=== PATIENT | female | born 1965 | race Two or more races ===

== ENCOUNTER 2016-10-16 10:56 | Inpatient (IN) | payer OTHER ==
[2016-10-16] MEDS ORDERED: Sodium Chloride 0.9% 1,000 ML IV ONE ×2 (12:04→16:53)
[2016-10-16 13:00] LABS: HEMATOCRIT 35.8 % (34.0-47.0); MEAN CELL VOLUME 89.9 fL (81.0-99.0); MEAN CORPUSCULAR HEMOGLOBIN 29.5 pg (27.0-31.0); MEAN CORPUSCULAR HGB CONC 32.8 g/dL (33.0-37.0); MEAN PLATELET VOLUME 8.9 fL (7.2-11.7); PLATELET COUNT 208 K/uL (130-400); RED CELL DISTRIBUTION WIDTH 13.5 % (11.5-14.5)
[2016-10-16 13:02] LABS: WHITE BLOOD COUNT 9.5 K/uL (4.8-10.8)
[2016-10-16 13:07] LABS: RBC URINE 7 /hpf (0-3); URINE BILIRUBIN NEGATIVE (NEGATIVE); URINE BLOOD 1+ (NEGATIVE); URINE COLOR Yellow (YELLOW); URINE GLUCOSE (UA) NORMAL (Normal); URINE KETONE NEGATIVE (NEGATIVE); URINE LEUKOCYTE ESTERASE TRACE Leu/uL (Negative); URINE PROTEIN NEGATIVE (NEGATIVE); URINE UROBILINOGEN NORMAL mg/dL (0.2-1.0); WBC URINE 3 /hpf (0-5)
[2016-10-16 13:08] LABS: CHLORIDE 99 mmol/L (98-107)
[2016-10-16 13:09] LABS: POTASSIUM 3.3 mmol/L (3.6-5.2); SODIUM 135 mmol/L (132-148)
[2016-10-16 13:11] LABS: ALB/GLOB RATIO 1.1 (1.0-2.1); ALKALINE PHOSPHATASE 83 U/L (38-126); ALT/SGPT 20 U/L (9-52); AST/SGOT 23 U/L (14-36); BILIRUBIN,TOTAL 0.9 mg/dL (0.2-1.3); BLOOD UREA NITROGEN 12 mg/dL (7-17); CARBON DIOXIDE 25 mmol/L (22-30); GFR AFRICAN-AMERICAN > 60; TOTAL PROTEIN 7.7 g/dL (6.3-8.3)
[2016-10-16 13:12] LABS: CALCIUM 8.5 mg/dl (8.6-10.4); GLUCOSE,RANDOM 126 mg/dL (65-105)
[2016-10-16 13:19] LABS: LYMPH # 0.5 K/uL (1.0-4.3); MONO # 0.1 K/uL (0.0-0.8)
[2016-10-16 13:24] LABS: NEUTROPHIL 65 % (50-75); TOTAL CELLS COUNTED 100
[2016-10-16] MEDS ORDERED: Vancomycin 1 gm/NS 200 ml 1 GM/200 ML BAG IVPB STA (13:25)
[2016-10-16] MEDS ORDERED: cefTRIAXone IV 1 gm in Dextros 50 ML IVPB STA (13:25)
--- NOTE | 2016-10-16 13:28 | C.PDOC ---
History Of Present Illness A 51 y/o female who came from [facility] 5 years ago, c/o colicky abdominal pain that began last with multiple episodes of diarrhea. Patient states she was well yesterday before the onset of symptoms. Patient woke up this morning with headache and neck stiffness. Pain is 6/10. Patient was afebrile (orally) on arrival. Denies nausea, vomiting, SOB, visual changes, weakness, numbness, or any other complaints. Time Seen by Provider: 10/16/16 11:52 Chief Complaint (Nursing): Headache History Per: Patient History/Exam Limitations: no limitations Onset/Duration Of Symptoms: Days Current Symptoms Are (Timing): Still Present Severity: Mild Pain Scale Rating Of: 6 Quality: Other (Colicky) Associated Symptoms: Nausea, Vomiting. denies: Blurred Vision Recent travel outside of the [facility]: No Additional History Per: Patient Past Medical History Reviewed: Historical Data, Nursing Documentation, Vital Signs Vital Signs: Last Vital Signs Temp 98.3 F 10/16/16 15:04 Pulse 69 10/16/16 16:30 Resp 20 10/16/16 16:30 BP 76/41 L 10/16/16 16:24 Pulse Ox 99 10/16/16 17:05 - Medical History PMH: Denies: Diabetes, Hepatitis, HIV, HTN, Seizures, Sexually Transmitted Disease Surgical History: Cholecystectomy Family History: States: Unknown Family Hx - Social History Hx Tobacco Use: No Hx Alcohol Use: No Hx Substance Use: No - Immunization History Hx Tetanus Toxoid Vaccination: Yes Hx Influenza Vaccination: No Hx Pneumococcal Vaccination: No Review Of Systems Except As Marked, All Systems Reviewed And Found Negative. Constitutional: Negative for: Fever, Chills Eyes: Negative for: Vision Change Respiratory: Negative for: Shortness of Breath Gastrointestinal: Positive for: Abdominal Pain, Diarrhea. Negative for: Nausea , Vomiting Musculoskeletal: Positive for: Neck Pain (Neck stiffness) Neurological: Positive for: Headache. Negative for: Weakness, Numbness Physical Exam - Physical Exam Appears: No Acute Distress Skin: Warm, Dry Head: Atraumatic, Normacephalic Eye(s): bilateral: Normal Inspection, PERRL, EOMI Ear(s): Bilateral: Normal Oral Mucosa: Moist Throat: Normal, No Exudate Neck: Supple, Other (No meningeal signs) Cardiovascular: Rhythm Regular Respiratory: Normal Breath Sounds, No Accessory Muscle Use, No Rales, No Rhonchi , No Wheezing Gastrointestinal/Abdominal: Soft, No Tenderness Neurological/Psych: Oriented x3 (Awake and alert) ED Course And Treatment - Laboratory Results Result Diagrams: 10/16/16 12:35 10/16/16 12:35 O2 Sat by Pulse Oximetry: 99 (RA) Pulse Ox Interpretation: Normal Lumbar Puncture - Time Out Time Out: Patient ID confirmed, Sterile procedures obs. - Consent obtained Consent obtained: Written - Performed by Performed by: Attending Physician - Indications Indication(s): Suspected menigitis - Contraindications Contraindications: None - Patient Position Patient position: Sitting - Local Anesthetic Location: L4/L5 Needle size gauge: 22 - Fluid Appearance Fluid Appearance: Clear Amount Drained ml: 4 - Post-procedure Post-procedure: No leak/bld from LP site, Dressing applied, Patient laid flat, Neurovascular status nml - CSF Studies CSF Studies: Cell count/diff, Glucose, culture/sensitivity - Patient tolerated procedure Patient tolerated procedure: Well Medical Decision Making Medical Decision Making: Impression: A 51 y/o female who came from [facility] 5 years ago, c/o colicky abdominal pain that began last with multiple episodes of diarrhea. Associated headache and neck stiffness. Rectal temp 103. Plan IV Abx, LP, admission Rectal temp ordered, pt temp 103F (+) bandemia Code sepsis called LP performed Blood and urine culture ordered Vancomycin and Rocephin started Pt became hypotensive with BP at 60s/40s Spoke with ICU, Dr. Mckinley at beside and accepted the pt Endorsed to hospitalist Disposition Discussed With DrNikkie: Titus Hernandez Counseled Patient/Family Regarding: Studies Performed, Diagnosis - Disposition Disposition: HOSPITALIZED Disposition Time: 14:53 Condition: GUARDED - Clinical Impression Clinical Impression: Headache, Sepsis, Hypotension - Scribe Statement The provider has reviewed the documentation as recorded by the Scribe Kyara hogue All medical record entries made by the Scribe were at my direction and personally dictated by me. I have reviewed the chart and agree that the record accurately reflects my personal performance of the history, physical exam, medical decision making, and the department course for this patient. I have also personally directed, reviewed, and agree with the discharge instructions and disposition. Decision To Admit - Pt Status Changed To: Hospital Disposition Of: Inpatient - Admit Certification Admit to Inpatient:: After my assessment, the patient will require hospitalization for at least two midnights. This is because of the severity of symptoms shown, intensity of services needed, and/or the medical risk in this patient being treated as an outpatient. - InPatient: Physician Admission Certification: I certify that this patient requires 2 or more midnights of care for the following reason:: hypotension, sepsis, r/o meningitis - . Bed Request Type: ICU Admitting Physician: Titus Hernandez Patient Diagnosis: Headache, Sepsis, Hypotension
[2016-10-16] MEDS ORDERED: Sodium Chloride 0.9% 1,000 ML ONE (13:44)
--- NOTE | 2016-10-16 13:56 | RAD ---
HISTORY: Sepsis Patient COMPARISON: No prior. FINDINGS: LUNGS: The lungs are well inflated and clear. PLEURA: No significant pleural effusion identified, no pneumothorax apparent. CARDIOVASCULAR: Normal. OSSEOUS STRUCTURES: No significant abnormalities. VISUALIZED UPPER ABDOMEN: Normal. OTHER FINDINGS: None. IMPRESSION: No active pulmonary disease.
[2016-10-16] MEDS ORDERED: cefTRIAXone IV 1 gm in Dextros 50 ML IVPB ONE (14:11)
[2016-10-16 14:15] LABS: VENOUS BLOOD GAS BASE EXCESS 0.1 mmol/L (0.0-2.0); VENOUS BLOOD GAS PCO2 35 mmHg (40-60); VENOUS BLOOD PH 7.44 (7.32-7.43)
[2016-10-16 14:37] LABS: FLUID TYPE SPINAL FLUID
--- NOTE | 2016-10-16 14:46 | CP.PCM.HP ---
<Remedios Colon - Last Filed: 10/16/16 18:58> History of Present Illness - History of Present Illness History of Present Illness: Patient is a 51yo F PMHx hypotension does not take any medications who presented to ER complaining of fever, chills, headache, neck pain, diarrhea, and vomiting for one day. Patient was afebrile in ER but had rectal temp 103 with bandemia and BP of 70/40 with HR 62. Code sepsis was called in ER and LP was performed by Dr. Villalta. Blood and urine cultures ordered and patient was given 1 dose vancomycin and started on Rocephin. Patient was given 3L bolus but BP was still 60s/40s and was accepted to unit. Patient reports headache was 8-9/10 and locaed on the top of her head with no associated blurry vision/ringing of the ears. Patient was also complaining of colicky abdominal pain 8-9/10 and had 6 episodes of diarrhea and home that had no bood but was dark colored. Patient also had 3 episodes of nonbloody nonbilious emesis this AM. Her last meal was yesterday and she denied any sick contacts. Patient did not take a temp at home but was complaining of chills. She denied any chest pain, palpitations, SOB, cough, b/l leg pain/swelling. She denied any recent travel and moved from [facility] 5 years ago. 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 absent: Blurred Vision Ears: As Per HPI. absent: Tinnitus, Dizziness Nose/Mouth/Throat: As Per HPI. absent: Sore Throat - Cardiovascular Cardiovascular: As Per HPI. absent: Chest Pain, Chest Pain with Activity, Dyspnea - Respiratory Respiratory: As Per HPI. absent: Cough, Dyspnea on Exertion, Chest Congestion - Gastrointestinal Gastrointestinal: As Per HPI, Abdominal Pain, Diarrhea, Nausea, Vomiting. absent: Constipation - Genitourinary Genitourinary: As Per HPI. absent: Dysuria, Hematuria - Musculoskeletal Musculoskeletal: As Per HPI. absent: Back Pain, Numbness, Tingling - Integumentary Integumentary: As Per HPI. absent: Rash - Neurological Neurological: As Per HPI, Headaches. absent: Dizziness, Numbness, Tingling, Weakness - Psychiatric Psychiatric: As Per HPI. absent: Anxiety - Endocrine Endocrine: As Per HPI. absent: Polydipsia, Polyphagia, Polyuria - Hematologic/Lymphatic Hematologic: As Per HPI. absent: Easy Bleeding, Easy Bruising, Lymphadenopathy Past Patient History - Past Social History Smoking Status: Never Smoked - CARDIAC Hx Hypertension: No - PULMONARY Hx Tuberculosis: No - NEUROLOGICAL Hx Seizures: No - HEMATOLOGICAL/ONCOLOGICAL Hx Human Immunodeficiency Virus (HIV): No - GENITOURINARY/GYNECOLOGICAL Hx Sexually Transmitted Disorders: No - PSYCHIATRIC Hx Substance Use: No - SURGICAL HISTORY Hx Cholecystectomy: Yes - ANESTHESIA Hx Anesthesia: Yes Hx Anesthesia Reactions: No Meds Allergies/Adverse Reactions: Allergies Allergy/AdvReac Type Severity Reaction Status Date / Time pain medication AdvReac Intermediate Uncoded 11/25/15 12:17 Physical Exam - Constitutional Appears: Well, Non-toxic, No Acute Distress - Head Exam Head Exam: ATRAUMATIC, NORMAL INSPECTION, NORMOCEPHALIC - Eye Exam Eye Exam: EOMI, Normal appearance, PERRL. absent: Conjunctival injection, Scleral icterus Pupil Exam: NORMAL ACCOMODATION - ENT Exam ENT Exam: Mucous Membranes Moist - Neck Exam Neck exam: Positive for: Normal Inspection Additional comments: R IJ triple lumen in place - Respiratory Exam Respiratory Exam: Clear to Auscultation Bilateral, NORMAL BREATHING PATTERN. absent: Accessory Muscle Use, Rales, Rhonchi, Wheezes, Respiratory Distress - Cardiovascular Exam Cardiovascular Exam: REGULAR RHYTHM, RRR, +S1, +S2. absent: Systolic Murmur - GI/Abdominal Exam GI & Abdominal Exam: Normal Bowel Sounds, Soft. absent: Firm, Guarding, Rigid, Tenderness - Rectal Exam Rectal Exam: Deferred - Extremities Exam Extremities exam: Positive for: normal capillary refill, normal inspection, pedal pulses present. Negative for: pedal edema - Back Exam Back exam: NORMAL INSPECTION. absent: rash noted - Neurological Exam Neurological exam: Alert, CN II-XII Intact, Oriented x3 - Psychiatric Exam Psychiatric exam: Normal Affect, Normal Mood - Skin Skin Exam: Dry, Intact, Normal Color, Warm Results - Vital Signs Recent Vital Signs: Last Vital Signs Temp 102.2 F H 10/16/16 13:20 Pulse 62 10/16/16 14:29 Resp 18 10/16/16 14:29 BP 70/40 L 10/16/16 14:29 Pulse Ox 98 10/16/16 14:29 - Labs Result Diagrams: 10/16/16 12:35 10/16/16 12:35 Labs: Laboratory Results - last 24 hr 10/16/16 10/16/16 10/16/16 12:35 12:35 12:35 WBC 9.5 D RBC 3.99 Hgb 11.8 Hct 35.8 MCV 89.9 MCH 29.5 MCHC 32.8 L RDW 13.5 Plt Count 208 MPV 8.9 Neut % (Auto) 94.0 H Lymph % (Auto) 5.0 L [place] % (Auto) 1.0 Eos % (Auto) 0.0 Baso % (Auto) 0.0 Neut # 8.9 H Lymph # 0.5 L [place] # 0.1 Eos # 0.0 Baso # 0.0 Neutrophils % (Manual) 65 Band Neutrophils % 30 H* Lymphocytes % (Manual) 4 L Monocytes % (Manual) 1 Platelet Estimate Normal Hypochromasia (manual) Slight Poikilocytosis (manual Slight Anisocytosis (manual) Slight pO2 VBG pH VBG pCO2 VBG HCO3 VBG Total CO2 VBG O2 Sat (Calc) VBG Base Excess VBG Potassium Glucose Lactate Sodium 135 Potassium 3.3 L Chloride 99 Carbon Dioxide 25 Anion Gap 15 BUN 12 Creatinine 0.7 Est GFR ( Amer) > 60 Est GFR (Non-Af Amer) > 60 Random Glucose 126 H Calcium 8.5 L Total Bilirubin 0.9 AST 23 ALT 20 Alkaline Phosphatase 83 Total Protein 7.7 Albumin 4.1 Globulin 3.6 Albumin/Globulin Ratio 1.1 Venous Blood Potassium Urine Color Yellow Urine Clarity Hazy Urine pH 5.0 Ur Specific [place] 1.023 Urine Protein Negative Urine Glucose (UA) Normal Urine Ketones Negative Urine Blood 1+ H Urine Nitrate Negative Urine Bilirubin Negative Urine Urobilinogen Normal Ur Leukocyte Esterase Trace Urine WBC (Auto) 3 Urine RBC (Auto) 7 H Ur Squamous Epith Cells 28 H Fluid Type 10/16/16 10/16/16 14:00 14:35 WBC RBC Hgb Hct MCV MCH MCHC RDW Plt Count MPV Neut % (Auto) Lymph % (Auto) [place] % (Auto) Eos % (Auto) Baso % (Auto) Neut # Lymph # [place] # Eos # Baso # Neutrophils % (Manual) Band Neutrophils % Lymphocytes % (Manual) Monocytes % (Manual) Platelet Estimate Hypochromasia (manual) Poikilocytosis (manual Anisocytosis (manual) pO2 67 H VBG pH 7.44 H VBG pCO2 35 L VBG HCO3 24.9 VBG Total CO2 24.9 VBG O2 Sat (Calc) 96.7 H VBG Base Excess 0.1 VBG Potassium 2.9 L Glucose 124 H Lactate 1.0 Sodium 137.0 Potassium Chloride 107.0 Carbon Dioxide Anion Gap BUN Creatinine Est GFR ( Amer) Est GFR (Non-Af Amer) Random Glucose Calcium Total Bilirubin AST ALT Alkaline Phosphatase Total Protein Albumin Globulin Albumin/Globulin Ratio Venous Blood Potassium 2.9 L Urine Color Urine Clarity Urine pH Ur Specific [place] Urine Protein Urine Glucose (UA) Urine Ketones Urine Blood Urine Nitrate Urine Bilirubin Urine Urobilinogen Ur Leukocyte Esterase Urine WBC (Auto) Urine RBC (Auto) Ur Squamous Epith Cells Fluid Type Spinal fluid Assessment & Plan - Assessment and Plan (Free Text) Assessment: 51yo F PMHx hypotension does not take any medications who presented to ER complaining of fever, chills, headache, neck pain, diarrhea, and vomiting for one day Plan: Neuro -no acute issues Cardio -hypotensive 70s/40s -Monitor Respiratory -no acute issues GI -diarrhea and vomiting -f/u stool studies -f/u Abd u/s -Rocephin 1gm ivpb q12 -Flagyl 500mg ivpb q8 -Pepcid 20mg po bid -Florastor 250mgf po tid -NS @ 125cc/hr -Thiamine 100mg po daily -Vitamin C 500mg po daily -Potassium repleted Renal -no acute issues Heme -no acute issues Endo -no acute issues ID -Code sepsis called in ER -f/u LP studies -f/u stool studies -Rocephin 1gm ivpb q12 -Flagyl 500mg ivpb q8 -Pepcid 20mg po bid -Florastor 250mgf po tid -NS @ 125cc/hr -Thiamine 100mg po daily -Vitamin C 500mg po daily MSK -chronic neck pain -Monitor DVT ppx: SCDs; heparin 5000u sc q12 GI ppx: Pepcid 20mg po bid Code status: full code Case discussed with Dr. Elías Colon PGY2 <Titus Hernandez H - Last Filed: 10/17/16 07:45> Results - Vital Signs Recent Vital Signs: Last Vital Signs Temp 98.9 F 10/17/16 04:00 Pulse 69 10/17/16 06:24 Resp 24 10/17/16 06:24 BP 86/47 L 10/17/16 06:24 Pulse Ox 96 10/17/16 06:24 - Labs Result Diagrams: 10/17/16 06:31 10/17/16 06:31 Labs: Laboratory Results - last 24 hr 10/16/16 10/16/16 10/16/16 17:00 18:55 Unknown WBC RBC Hgb Hct MCV MCH MCHC RDW Plt Count MPV Neut % (Auto) Lymph % (Auto) [place] % (Auto) Eos % (Auto) Baso % (Auto) Neut # Lymph # [place] # Eos # Baso # pO2 23 L VBG pH 7.31 L VBG pCO2 34 L VBG HCO3 16.8 VBG Total CO2 18.1 L VBG O2 Sat (Calc) 47.6 VBG Base Excess -8.2 L VBG Potassium 2.2 L* Sodium 142.0 Chloride 116.0 H Glucose 88 Lactate 0.8 Crit Value Called To Dr lagunas Crit Value Called By Gamaliel menendez Crit Value Read Back Y Blood Gas Notified Time 1710 Potassium Carbon Dioxide Anion Gap BUN Creatinine Est GFR ( Amer) Est GFR (Non-Af Amer) Random Glucose Calcium Phosphorus Magnesium Total Bilirubin AST ALT Alkaline Phosphatase Total Protein Albumin Globulin Albumin/Globulin Ratio Venous Blood Potassium 2.2 L* Stool Occult Blood Negative Stool Leukocytes, Qual Positive H C. difficile Ag & Toxin Negative 10/17/16 10/17/16 06:31 06:31 WBC 5.1 RBC 3.09 L Hgb 9.4 L D Hct 28.0 L MCV 90.4 MCH 30.3 MCHC 33.5 RDW 13.8 Plt Count 148 MPV 9.3 Neut % (Auto) 84.4 H Lymph % (Auto) 11.6 L [place] % (Auto) 3.8 Eos % (Auto) 0.1 Baso % (Auto) 0.1 Neut # 4.3 Lymph # 0.6 L [place] # 0.2 Eos # 0.0 Baso # 0.0 pO2 VBG pH VBG pCO2 VBG HCO3 VBG Total CO2 VBG O2 Sat (Calc) VBG Base Excess VBG Potassium Sodium 134 Chloride 106 Glucose Lactate Crit Value Called To Crit Value Called By Crit Value Read Back Blood Gas Notified Time Potassium 2.9 L Carbon Dioxide 20 L Anion Gap 11 BUN 7 Creatinine 0.6 L Est GFR ( Amer) > 60 Est GFR (Non-Af Amer) > 60 Random Glucose 82 Calcium 6.7 L Phosphorus 2.4 L Magnesium 1.5 L Total Bilirubin 0.6 AST 50 H D ALT 34 Alkaline Phosphatase 53 Total Protein 5.4 L Albumin 2.7 L D Globulin 2.8 Albumin/Globulin Ratio 1.0 Venous Blood Potassium Stool Occult Blood Stool Leukocytes, Qual C. difficile Ag & Toxin Attending/Attestation - Attestation I have personally seen and examined this patient.: Yes I have fully participated in the care of the patient.: Yes I have reviewed all pertinent clinical information: Yes Notes (Text): Medical attending: Patient was seen and examined by me, agrees the above note by medical consultant. By the time I saw the patient she was already moved into the intensive care unit at 10. She was awake alert responsive to commands did not appear to be in any acute distress. That being said her systolic blood pressure was still low and was in the mid 80s. In the emergency room she had a successful LP done, the results of which were still pending by the time I saw the patient ICU. As noted above the patient is also having some diarrhea and vomiting as well She is ready been started on antibiotics, or monitor blood cultures CSF cultures as well as stool cultures and stool studies 10/17/16 07:45
[2016-10-16] MEDS: Potassium Chloride 20 mEq ER Tab PO ONE (15:36)
[2016-10-16] MEDS ORDERED: Potassium Chloride 20 mEq ER Tab PO ONE ×2 (15:40→17:01)
[2016-10-16] MEDS: Sodium Chloride 0.9% 1,000 ML IV ONE ×2 (16:00→18:20)
[2016-10-16 17:09] LABS: VENOUS BLOOD GAS BASE EXCESS -8.2 mmol/L (0.0-2.0); VENOUS BLOOD GAS PCO2 34 mmHg (40-60); VENOUS BLOOD PH 7.31 (7.32-7.43)
[2016-10-16] MEDS: metroNIDAZOLE IV 500 mg/100 ml 500 MG/100 ML BAG IVPB SCH (18:16)
[2016-10-16] MEDS: Saccharomyces Boulardi 250 mg Cap PO SCH (18:17)
[2016-10-16] MEDS: Sodium Chloride 0.9% 1,000 ML IV SCH (18:23)
--- NOTE | 2016-10-16 18:38 | PCM.PROC ---
Procedures Attestation:: I certify that I have explained the specified Operation(s) or Procedure(s), risks, benefits and reasonable alternatives to the Patient and/or other person responsible. The opportunity was given to ask questions and all questions answered - Central Line Placement Right Internal Jugular Triple Lumen Catheter Aseptic technique was employed throughout the procedure: Hand Hygiene done prior to procedure, Full sterile barriers (mask, hair cover, sterile gown, sterile gloves), Full body sterile drape, Chloraprep Antiseptic: 30 second prep for IJ or SC sites CVP Time Out Performed: Yes Pt. Placed on Pulse Ox Monitor: Yes Central Line Prep: Chlorhexidine-Alcohol Combination Local Anesthesia Used: Lidocaine 1% Ultrasound Used for Placement: Yes Central Line Lumen Inserted: triple Central Line Length: 20 cm Post Procedure: Sutured in Place, Good Blood Return, All Ports Aspirated, Flushed, Capped, Sterile Dressing Applied Secured by: Securement device Post procedure dressing: Gauze, Chlorhexidine disc (Biopatch) Post Procedure X-Ray: Yes Patient Tolerated Procedure: Well, No Complications Immediate Complications: None Additional Comments: Central line placed by ICU drawing checker Dr. Mckinley
[2016-10-16 18:45] LABS: C DIFF TOXIN A B NEGATIVE (NEGATIVE)
[2016-10-16 18:59] LABS: FECAL LEUKOCYTES POSITIVE (NEGATIVE)
--- NOTE | 2016-10-16 20:49 | US ---
EXAM: US Abdomen Complete CLINICAL HISTORY: 51 years old, female; Pain; Abdominal pain; Prior surgery; Surgery type: Gb; Additional info: Abd pain TECHNIQUE: Real-time ultrasound of the abdomen (complete) with image documentation. EXAM DATE/TIME: 10/16/2016 6:47 PM COMPARISON: There are no prior studies for comparison. FINDINGS: Liver: Liver is unremarkable. There is hepatopedal flow in the main portal vein. Gallbladder: Gallbladder is surgically absent. Common bile duct: Common bile duct measures 8.4 mm in diameter. Pancreas: Pancreas is partially obscured by bowel gas. Visualized portion is unremarkable. Kidneys: Right kidney is unremarkable.Left kidney is unremarkable. Spleen: Spleen is unremarkable. Aorta: Visualized portions of the aorta and inferior vena cava are unremarkable. Inferior vena cava: See above. IMPRESSION: Mildly dilated common duct status post cholecystectomy, study is otherwise unremarkable
[2016-10-17] MEDS: metroNIDAZOLE IV 500 mg/100 ml 500 MG/100 ML BAG IVPB SCH ×3 (02:16→17:38)
[2016-10-17] MEDS: Sodium Chloride 0.9% 1,000 ML IV SCH ×3 (06:37→22:04)
[2016-10-17 06:49] LABS: BASO % 0.1 % (0.0-2.0); EOS % 0.1 % (0.0-4.0); LYMPH # 0.6 K/uL (1.0-4.3); LYMPH % 11.6 % (20.0-40.0); MEAN CELL VOLUME 90.4 fL (81.0-99.0); MEAN CORPUSCULAR HEMOGLOBIN 30.3 pg (27.0-31.0); MEAN CORPUSCULAR HGB CONC 33.5 g/dL (33.0-37.0); MEAN PLATELET VOLUME 9.3 fL (7.2-11.7); MONO # 0.2 K/uL (0.0-0.8); MONO % 3.8 % (0.0-10.0); RED CELL DISTRIBUTION WIDTH 13.8 % (11.5-14.5); WHITE BLOOD COUNT 5.1 K/uL (4.8-10.8)
[2016-10-17 07:09] LABS: CHLORIDE 106 mmol/L (98-107); SODIUM 134 mmol/L (132-148)
[2016-10-17 07:10] LABS: POTASSIUM 2.9 mmol/L (3.6-5.2)
[2016-10-17 07:12] LABS: ALKALINE PHOSPHATASE 53 U/L (38-126); ALT/SGPT 34 U/L (9-52); AST/SGOT 50 U/L (14-36); BILIRUBIN,TOTAL 0.6 mg/dL (0.2-1.3); BLOOD UREA NITROGEN 7 mg/dL (7-17); CARBON DIOXIDE 20 mmol/L (22-30); GFR AFRICAN-AMERICAN > 60; GLUCOSE,RANDOM 82 mg/dL (65-105); PHOSPHOROUS 2.4 mg/dL (2.5-4.5); TOTAL PROTEIN 5.4 g/dL (6.3-8.3)
[2016-10-17 07:13] LABS: CALCIUM 6.7 mg/dl (8.6-10.4); MAGNESIUM 1.5 mg/dL (1.6-2.3)
[2016-10-17] MEDS ORDERED: Potassium Chloride 20 mEq ER Tab PO ONE (07:24)
--- NOTE | 2016-10-17 07:26 | CP.CCUPN ---
CCU Objective - Vital Signs / Intake & Output Vital Signs (Last 4 hours): Vital Signs Temp Pulse Resp BP Pulse Ox 10/17/16 06:24 69 24 86/47 L 96 10/17/16 05:24 68 22 91/43 L 98 10/17/16 04:24 63 20 74/33 L 100 10/17/16 04:00 98.9 F Intake and Output (Last 8hrs): Intake & Output 10/16/16 10/17/16 10/17/16 22:59 06:59 14:59 Intake Total 1824 1200 Output Total 300 900 Balance 1524 300 Intake: Intake, IV Amount 1824 1200 Left Antecubital 999 Right Antecubital 125 Right Internal Jugular 700 1200 Output: Urine 200 600 Urine, Voided 200 600 Stool 100 300 - Medications Active Medications: Active Medications Generic Name Dose Route Start Last Admin Trade Name Freq PRN Reason Stop Dose Admin Ascorbic Acid 500 mg 10/16/16 17:15 10/16/16 18:17 Vitamin C 500 Mg Tab PO 500 mg DAILY GREGG Administration Famotidine 20 mg 10/16/16 22:00 10/16/16 22:24 Pepcid IVP 20 mg Q12 GREGG Administration Heparin Sodium (Porcine) 5,000 units 10/16/16 22:00 10/16/16 22:24 Heparin SC 5,000 units Q12 GREGG Administration Metronidazole 500 mg in 100 mls @ 100 mls/hr 10/16/16 18:00 10/17/16 02:16 Flagyl IVPB 100 mls/hr Q8H GREGG Administration Ceftriaxone Sodium 1 gm/ 100 mls @ 100 mls/hr 10/16/16 19:00 10/17/16 06:38 Sodium Chloride IVPB 100 mls/hr Q12H GREGG Administration Sodium Chloride 1,000 mls @ 125 mls/hr 10/16/16 18:00 10/17/16 06:37 Sodium Chloride 0.9% IV 125 mls/hr .Q8H GREGG Administration Potassium Chloride 20 meq in 100 mls @ 50 mls/hr 10/17/16 07:24 Potassium Chloride 20 Meq/100 Ml IVPB 10/17/16 09:23 ONCE ONE Ondansetron HCl 4 mg 10/16/16 18:48 Zofran Inj IVP Q6H PRN Nausea/Vomiting Potassium Chloride 40 meq 10/17/16 14:46 06/28/17 15:36 K-Dur 20 Meq Er Tab PO 10/17/16 14:47 40 meq ONCE ONE Administration Potassium Chloride 40 meq 10/17/16 07:24 K-Dur 20 Meq Er Tab PO 10/17/16 07:25 ONCE ONE Saccharomyces Boulardii 250 mg 10/16/16 18:00 10/16/16 18:17 Florastor PO 250 mg TID GREGG Administration Thiamine HCl 100 mg 10/16/16 17:15 10/16/16 18:17 Vitamin B1 Tab PO 100 mg DAILY GREGG Administration - Patient Studies Lab Studies: Lab Studies 10/17/16 10/17/16 10/16/16 Range/Units 06:31 06:31 Unknown WBC 5.1 (4.8-10.8) K/uL RBC 3.09 L (3.80-5.20) Mil/uL Hgb 9.4 L D (11.0-16.0) g/dL Hct 28.0 L (34.0-47.0) % MCV 90.4 (81.0-99.0) fL MCH 30.3 (27.0-31.0) pg MCHC 33.5 (33.0-37.0) g/dL RDW 13.8 (11.5-14.5) % Plt Count 148 (130-400) K/uL MPV 9.3 (7.2-11.7) fL Neut % (Auto) 84.4 H (50.0-75.0) % Lymph % (Auto) 11.6 L (20.0-40.0) % [place] % (Auto) 3.8 (0.0-10.0) % Eos % (Auto) 0.1 (0.0-4.0) % Baso % (Auto) 0.1 (0.0-2.0) % Neut # 4.3 (1.8-7.0) K/uL Lymph # 0.6 L (1.0-4.3) K/uL [place] # 0.2 (0.0-0.8) K/uL Eos # 0.0 (0.0-0.7) K/uL Baso # 0.0 (0.0-0.2) K/uL pO2 (30-55) mm/Hg VBG pH (7.32-7.43) VBG pCO2 (40-60) mmHg VBG HCO3 mmol/L VBG Total CO2 (22-28) mmol/L VBG O2 Sat (Calc) (40-65) % VBG Base Excess (0.0-2.0) mmol/L VBG Potassium (3.6-5.2) mmol/L Sodium 134 (132-148) mmol/l Chloride 106 (98-107) mmol/L Glucose (65-105) mg/dl Lactate (0.7-2.1) mmol/L Crit Value Called To Crit Value Called By Crit Value Read Back Blood Gas Notified Time Potassium 2.9 L (3.6-5.2) mmol/L Carbon Dioxide 20 L (22-30) mmol/L Anion Gap 11 (10-20) BUN 7 (7-17) mg/dL Creatinine 0.6 L (0.7-1.2) MG/DL Est GFR ( Amer) > 60 Est GFR (Non-Af Amer) > 60 Random Glucose 82 (65-105) mg/dL Calcium 6.7 L (8.6-10.4) mg/dl Phosphorus 2.4 L (2.5-4.5) mg/dL Magnesium 1.5 L (1.6-2.3) mg/dL Total Bilirubin 0.6 (0.2-1.3) mg/dL AST 50 H D (14-36) U/L ALT 34 (9-52) U/L Alkaline Phosphatase 53 (38-126) U/L Total Protein 5.4 L (6.3-8.3) g/dL Albumin 2.7 L D (3.5-5.0) g/dL Globulin 2.8 (2.2-3.9) gm/dL Albumin/Globulin Ratio 1.0 (1.0-2.1) Venous Blood Potassium (3.6-5.2) mmol/L Stool Occult Blood (NEGATIVE) Stool Leukocytes, Qual Positive H (NEGATIVE) C. difficile Ag & Toxin Negative (NEGATIVE) 10/16/16 10/16/16 Range/Units 18:55 17:00 WBC (4.8-10.8) K/uL RBC (3.80-5.20) Mil/uL Hgb (11.0-16.0) g/dL Hct (34.0-47.0) % MCV (81.0-99.0) fL MCH (27.0-31.0) pg MCHC (33.0-37.0) g/dL RDW (11.5-14.5) % Plt Count (130-400) K/uL MPV (7.2-11.7) fL Neut % (Auto) (50.0-75.0) % Lymph % (Auto) (20.0-40.0) % [place] % (Auto) (0.0-10.0) % Eos % (Auto) (0.0-4.0) % Baso % (Auto) (0.0-2.0) % Neut # (1.8-7.0) K/uL Lymph # (1.0-4.3) K/uL [place] # (0.0-0.8) K/uL Eos # (0.0-0.7) K/uL Baso # (0.0-0.2) K/uL pO2 23 L (30-55) mm/Hg VBG pH 7.31 L (7.32-7.43) VBG pCO2 34 L (40-60) mmHg VBG HCO3 16.8 mmol/L VBG Total CO2 18.1 L (22-28) mmol/L VBG O2 Sat (Calc) 47.6 (40-65) % VBG Base Excess -8.2 L (0.0-2.0) mmol/L VBG Potassium 2.2 L* (3.6-5.2) mmol/L Sodium 142.0 (132-148) mmol/l Chloride 116.0 H (98-107) mmol/L Glucose 88 (65-105) mg/dl Lactate 0.8 (0.7-2.1) mmol/L Crit Value Called To Dr lagunas Crit Value Called By Gamaliel menendez Crit Value Read Back Y Blood Gas Notified Time 1710 Potassium (3.6-5.2) mmol/L Carbon Dioxide (22-30) mmol/L Anion Gap (10-20) BUN (7-17) mg/dL Creatinine (0.7-1.2) MG/DL Est GFR ( Amer) Est GFR (Non-Af Amer) Random Glucose (65-105) mg/dL Calcium (8.6-10.4) mg/dl Phosphorus (2.5-4.5) mg/dL Magnesium (1.6-2.3) mg/dL Total Bilirubin (0.2-1.3) mg/dL AST (14-36) U/L ALT (9-52) U/L Alkaline Phosphatase (38-126) U/L Total Protein (6.3-8.3) g/dL Albumin (3.5-5.0) g/dL Globulin (2.2-3.9) gm/dL Albumin/Globulin Ratio (1.0-2.1) Venous Blood Potassium 2.2 L* (3.6-5.2) mmol/L Stool Occult Blood Negative (NEGATIVE) Stool Leukocytes, Qual (NEGATIVE) C. difficile Ag & Toxin (NEGATIVE) Laboratory Results - last 24 hr 10/16/16 10/16/16 10/16/16 17:00 18:55 Unknown WBC RBC Hgb Hct MCV MCH MCHC RDW Plt Count MPV Neut % (Auto) Lymph % (Auto) [place] % (Auto) Eos % (Auto) Baso % (Auto) Neut # Lymph # [place] # Eos # Baso # pO2 23 L VBG pH 7.31 L VBG pCO2 34 L VBG HCO3 16.8 VBG Total CO2 18.1 L VBG O2 Sat (Calc) 47.6 VBG Base Excess -8.2 L VBG Potassium 2.2 L* Sodium 142.0 Chloride 116.0 H Glucose 88 Lactate 0.8 Crit Value Called To Dr lagunas Crit Value Called By Gamaliel menendez Crit Value Read Back Y Blood Gas Notified Time 1710 Potassium Carbon Dioxide Anion Gap BUN Creatinine Est GFR ( Amer) Est GFR (Non-Af Amer) Random Glucose Calcium Phosphorus Magnesium Total Bilirubin AST ALT Alkaline Phosphatase Total Protein Albumin Globulin Albumin/Globulin Ratio Venous Blood Potassium 2.2 L* Stool Occult Blood Negative Stool Leukocytes, Qual Positive H C. difficile Ag & Toxin Negative 10/17/16 10/17/16 06:31 06:31 WBC 5.1 RBC 3.09 L Hgb 9.4 L D Hct 28.0 L MCV 90.4 MCH 30.3 MCHC 33.5 RDW 13.8 Plt Count 148 MPV 9.3 Neut % (Auto) 84.4 H Lymph % (Auto) 11.6 L [place] % (Auto) 3.8 Eos % (Auto) 0.1 Baso % (Auto) 0.1 Neut # 4.3 Lymph # 0.6 L [place] # 0.2 Eos # 0.0 Baso # 0.0 pO2 VBG pH VBG pCO2 VBG HCO3 VBG Total CO2 VBG O2 Sat (Calc) VBG Base Excess VBG Potassium Sodium 134 Chloride 106 Glucose Lactate Crit Value Called To Crit Value Called By Crit Value Read Back Blood Gas Notified Time Potassium 2.9 L Carbon Dioxide 20 L Anion Gap 11 BUN 7 Creatinine 0.6 L Est GFR ( Amer) > 60 Est GFR (Non-Af Amer) > 60 Random Glucose 82 Calcium 6.7 L Phosphorus 2.4 L Magnesium 1.5 L Total Bilirubin 0.6 AST 50 H D ALT 34 Alkaline Phosphatase 53 Total Protein 5.4 L Albumin 2.7 L D Globulin 2.8 Albumin/Globulin Ratio 1.0 Venous Blood Potassium Stool Occult Blood Stool Leukocytes, Qual C. difficile Ag & Toxin
[2016-10-17] MEDS ORDERED: Pantoprazole 40 mg EC Tab PO SCH (10:00)
--- NOTE | 2016-10-17 10:27 | RAD ---
Chest x-ray single frontal view History: Central line placement. Comparison: 10/16/2016 Findings: Right central venous catheter tip extending to the distal right SVC. No evidence of postprocedure pneumothorax. Mild venous congestion. Right hilar prominence. Linear atelectasis in the right midlung zone. Surgical clips in the right upper abdomen. Heart size within normal limits. Impression: Right central venous catheter tip extending to the distal right SVC. No evidence of postprocedure pneumothorax. Mild venous congestion. Right hilar prominence. Linear atelectasis in the right midlung zone.
[2016-10-17] MEDS: Magnesium Sulfate 1 gm in D5W 1 GM/100 ML BAG IVPB SCH ×3 (12:00→13:00)
[2016-10-17] MEDS: Potassium & Sodium Phosphate PO SCH ×3 (12:14→17:40)
[2016-10-17] MEDS: Saccharomyces Boulardi 250 mg Cap PO SCH ×3 (12:15→17:40)
--- NOTE | 2016-10-17 12:28 | CP.PCM.PN ---
Subjective - Date & Time of Evaluation Date of Evaluation: 10/17/16 Time of Evaluation: 12:25 - Subjective Subjective: Patient was seen and examined by me. She looks very well. She did not need pressor medications overnight. She did not have fever or chills. Her BP has remained in the mid 80 systolic. She does report still having ongoing water diarrhea. Reports very minimal headache. Reports minimal epigastric pain She is currently on IV Rocephin, IV Vancomycin, IV Flagyl So far the CSF fluid appears stable. Her WBC CSF was 2.0 and glucose was stable. Afebrile. Serum WBC was ok as well Pending further cultures at this time Later today being moved out of ICU Objective - Vital Signs/Intake and Output Vital Signs (last 24 hours): Temp Pulse Resp BP Pulse Ox 99.5 F 68 22 94/46 L 97 10/17/16 08:00 10/17/16 09:10 10/17/16 09:10 10/17/16 08:24 10/17/16 09:10 Intake and Output: 10/17/16 10/17/16 06:59 18:59 Intake Total 1800 375 Output Total 1200 200 Balance 600 175 - Medications Medications: Current Medications Ascorbic Acid (Vitamin C 500 Mg Tab) 500 mg PO DAILY [facility] Last Admin: 10/17/16 12:15 Dose: 500 mg Famotidine (Pepcid) 20 mg IVP Q12 [facility] Last Admin: 10/17/16 12:15 Dose: 20 mg Heparin Sodium (Porcine) (Heparin) 5,000 units SC Q12 [facility] Last Admin: 10/17/16 12:15 Dose: 5,000 units Metronidazole (Flagyl) 500 mg in 100 mls @ 100 mls/hr IVPB Q8H [facility] Last Admin: 10/17/16 02:16 Dose: 100 mls/hr Ceftriaxone Sodium 1 gm/ (Sodium Chloride) 100 mls @ 100 mls/hr IVPB Q12H [facility] Last Admin: 10/17/16 06:38 Dose: 100 mls/hr Sodium Chloride (Sodium Chloride 0.9%) 1,000 mls @ 125 mls/hr IV .Q8H [facility] Last Admin: 10/17/16 06:37 Dose: 125 mls/hr Magnesium Sulfate/Dextrose (Magnesium Sulfate 1 Gm/100 Ml D5w) 1 gm in 100 mls @ 200 mls/hr IVPB Q30M [facility] Stop: 10/17/16 12:59 Ondansetron HCl (Zofran Inj) 4 mg IVP Q6H PRN PRN Reason: Nausea/Vomiting Potassium Chloride (K-Dur 20 Meq Er Tab) 40 meq PO ONCE ONE Stop: 10/17/16 14:47 Last Admin: 10/16/16 15:36 Dose: 40 meq Potassium Phos/Sodium Phos (Neutra-Phos) 1 pkt PO TID [facility] Stop: 10/18/16 00:00 Last Admin: 10/17/16 12:14 Dose: 1 pkt Saccharomyces Boulardii (Florastor) 250 mg PO TID [facility] Last Admin: 10/17/16 12:15 Dose: 250 mg Thiamine HCl (Vitamin B1 Tab) 100 mg PO DAILY [facility] Last Admin: 10/16/16 18:17 Dose: 100 mg - Labs Labs: 10/17/16 06:31 10/17/16 06:31 - Constitutional Appears: Well, No Acute Distress - Head Exam Head Exam: NORMAL INSPECTION, NORMOCEPHALIC - Eye Exam Eye Exam: EOMI, Normal appearance - ENT Exam ENT Exam: Mucous Membranes Moist - Respiratory Exam Respiratory Exam: Clear to Ausculation Bilateral, NORMAL BREATHING PATTERN - Cardiovascular Exam Cardiovascular Exam: REGULAR RHYTHM - GI/Abdominal Exam GI & Abdominal Exam: Soft, Normal Bowel Sounds - Neurological Exam Neurological Exam: Alert, Awake, Oriented x3 Neuro motor strength exam: Left Upper Extremity: 5, Right Upper Extremity: 5 - Psychiatric Exam Psychiatric exam: Depressed, Flat Affect - Skin Skin Exam: Normal Color, Warm Assessment and Plan - Assessment and Plan (Free Text) Assessment: Assessment and plan 1) Headache, fever, possible meningitis Currently stable, did not require pressor medication, WBC and normal glucose count. CSF fluid returned and showed on 2 WBC and normal glucose range Still pending further assessment of the LP 2) History of hypotension. Possible the low systolic nunber related to the recent LP she had. 3) Still having diarrhea and watery stools. pending stool studies at this time
[2016-10-17] MEDS: Potassium Chloride 20 mEq ER Tab PO ONE (14:44)
[2016-10-17 18:46] LABS: CHLORIDE 106 mmol/L (98-107); SODIUM 135 mmol/L (132-148)
[2016-10-17 18:47] LABS: POTASSIUM 3.8 mmol/L (3.6-5.2)
[2016-10-17 18:49] LABS: BLOOD UREA NITROGEN 5 mg/dL (7-17); CARBON DIOXIDE 21 mmol/L (22-30); GFR AFRICAN-AMERICAN > 60
[2016-10-17 18:50] LABS: CALCIUM 7.2 mg/dl (8.6-10.4); GLUCOSE,RANDOM 94 mg/dL (65-105); MAGNESIUM 2.3 mg/dL (1.6-2.3)
[2016-10-18] MEDS: metroNIDAZOLE IV 500 mg/100 ml 500 MG/100 ML BAG IVPB SCH ×3 (02:11→18:10)
[2016-10-18] MEDS: Sodium Chloride 0.9% 1,000 ML IV SCH ×3 (06:21→18:21)
[2016-10-18 06:47] LABS: BASO % 0.3 % (0.0-2.0); CHLORIDE 105 mmol/L (98-107); EOS % 0.8 % (0.0-4.0); HEMATOCRIT 27.1 % (34.0-47.0); LYMPH # 0.9 K/uL (1.0-4.3); LYMPH % 19.5 % (20.0-40.0); MEAN CELL VOLUME 89.7 fL (81.0-99.0); MEAN CORPUSCULAR HEMOGLOBIN 30.2 pg (27.0-31.0); MEAN CORPUSCULAR HGB CONC 33.7 g/dL (33.0-37.0); MEAN PLATELET VOLUME 9.2 fL (7.2-11.7); MONO # 0.3 K/uL (0.0-0.8); MONO % 5.9 % (0.0-10.0); POTASSIUM 3.3 mmol/L (3.6-5.2); RED CELL DISTRIBUTION WIDTH 13.8 % (11.5-14.5); SODIUM 136 mmol/L (132-148); WHITE BLOOD COUNT 4.6 K/uL (4.8-10.8)
[2016-10-18 06:49] LABS: ALKALINE PHOSPHATASE 53 U/L (38-126); ALT/SGPT 27 U/L (9-52); AST/SGOT 31 U/L (14-36); BILIRUBIN,TOTAL 0.5 mg/dL (0.2-1.3); BLOOD UREA NITROGEN 4 mg/dL (7-17); CARBON DIOXIDE 23 mmol/L (22-30); GFR AFRICAN-AMERICAN > 60; TOTAL PROTEIN 5.5 g/dL (6.3-8.3)
[2016-10-18 06:50] LABS: CALCIUM 7.3 mg/dl (8.6-10.4); GLUCOSE,RANDOM 89 mg/dL (65-105); MAGNESIUM 2.2 mg/dL (1.6-2.3); PHOSPHOROUS 2.3 mg/dL (2.5-4.5)
[2016-10-18] MEDS ORDERED: Potassium Chloride 20 mEq ER Tab PO ONE (09:23)
--- NOTE | 2016-10-18 09:27 | CP.PCM.PN ---
<Annie Hudson - Last Filed: 10/18/16 15:52> Subjective - Date & Time of Evaluation Date of Evaluation: 10/18/16 Time of Evaluation: 07:00 - Subjective Subjective: PGY-1 Medicine Note- Dr. Hernandez's Service Patient seen and examined at bedside and in no acute distress. Patient says she is feeling beter than yesterday and no longer has neck pain, headache, or diarrhea. Patient did not vomit overnight and was able to eat all of her breakfast this morning with no nausea or vomiting. Patient also had a normal bowel movement today. Patient admits to some diffuse abdominal pain, mostly epigastric. She denies chills, dizziness, shortness of breath, chest pain. Objective - Vital Signs/Intake and Output Vital Signs (last 24 hours): Temp Pulse Resp BP Pulse Ox 98.2 F 47 L 14 90/51 L 98 10/18/16 08:00 10/18/16 08:24 10/18/16 08:24 10/18/16 08:24 10/18/16 08:20 Intake and Output: 10/18/16 10/18/16 06:59 18:59 Intake Total 2500 Output Total 1850 Balance 650 - Medications Medications: Current Medications Acetaminophen (Tylenol 325mg Tab) 650 mg PO Q6 PRN PRN Reason: Fever >100.4 F Last Admin: 10/17/16 22:01 Dose: 650 mg Ascorbic Acid (Vitamin C 500 Mg Tab) 500 mg PO DAILY [facility] Last Admin: 10/17/16 12:15 Dose: 500 mg Famotidine (Pepcid) 20 mg IVP Q12 [facility] Last Admin: 10/17/16 21:59 Dose: 20 mg Heparin Sodium (Porcine) (Heparin) 5,000 units SC Q12 [facility] Last Admin: 10/17/16 21:59 Dose: 5,000 units Metronidazole (Flagyl) 500 mg in 100 mls @ 100 mls/hr IVPB Q8H [facility] Last Admin: 10/18/16 02:11 Dose: 100 mls/hr Ceftriaxone Sodium 1 gm/ (Sodium Chloride) 100 mls @ 100 mls/hr IVPB Q12H [facility] Last Admin: 10/18/16 06:23 Dose: 100 mls/hr Sodium Chloride (Sodium Chloride 0.9%) 1,000 mls @ 125 mls/hr IV .Q8H [facility] Last Admin: 10/18/16 06:21 Dose: Not Given Ondansetron HCl (Zofran Inj) 4 mg IVP Q6H PRN PRN Reason: Nausea/Vomiting Saccharomyces Boulardii (Florastor) 250 mg PO TID [facility] Last Admin: 10/17/16 17:40 Dose: 250 mg Thiamine HCl (Vitamin B1 Tab) 100 mg PO DAILY [facility] Last Admin: 10/17/16 12:00 Dose: 100 mg - Labs Labs: 10/18/16 06:22 10/18/16 06:22 - Constitutional Appears: Well, Non-toxic, No Acute Distress - Head Exam Head Exam: ATRAUMATIC, NORMAL INSPECTION, NORMOCEPHALIC - Eye Exam Eye Exam: EOMI, Normal appearance, PERRL - ENT Exam ENT Exam: Mucous Membranes Moist, Normal Exam - Neck Exam Neck Exam: Full ROM, Normal Inspection. absent: Lymphadenopathy - Respiratory Exam Respiratory Exam: Clear to Ausculation Bilateral, NORMAL BREATHING PATTERN. absent: Rales, Rhonchi, Wheezes, Respiratory Distress, Stridor - Cardiovascular Exam Cardiovascular Exam: REGULAR RHYTHM, RRR, +S1, +S2. absent: Gallop, Rubs, Murmur - GI/Abdominal Exam GI & Abdominal Exam: Soft, Tenderness, Normal Bowel Sounds. absent: Firm, Guarding Additional comments: epigastric tenderness - Extremities Exam Extremities Exam: Full ROM, Normal Inspection. absent: Pedal Edema, Tenderness - Back Exam Back Exam: NORMAL INSPECTION. absent: rash noted - Neurological Exam Neurological Exam: Alert, Awake, Oriented x3 - Psychiatric Exam Psychiatric exam: Normal Affect, Normal Mood - Skin Skin Exam: Intact, Normal Color, Warm Assessment and Plan (1) Sepsis Assessment & Plan: -Code sepsis called in ER LP studies: Clear, WBC:2, RBC:8, Glucose:78 stool studies: occult blood- negative, leukocytes- positive, no salmonella, shigella, or campylobacter isolated blood culture: no growth after 24 hours Urine: no growth nasal culture: MRSA not detected 10/16: central line placed Cxray: right central venous catheter tip extending to the distal right SVC. No evidence of postprocedure pneumothorax. Mild venous congestion. Right hilar prominence. Linear atelectasis in the right midlung zone. Abdominal U/S: Mildly dilated common duct status post cholecystectomy, study is otherwise unremarkable. -Rocephin 1gm ivpb q12 -Flagyl 500mg ivpb q8 -Pepcid 20mg po bid -Florastor 250mgf po tid -Thiamine 100mg po daily -Vitamin C 500mg po daily Status: Acute (2) Hypotension Assessment & Plan: bp:90/51 -NS @ 125cc/hr Status: Acute (3) Prophylactic measure Assessment & Plan: DVT ppx: SCDs; Heparin 5000u sc q12 Pepcid 20 mg PO BID Status: Acute <Titus Hernandez H - Last Filed: 10/18/16 17:06> Objective - Vital Signs/Intake and Output Vital Signs (last 24 hours): Temp Pulse Resp BP Pulse Ox 98.2 F 64 17 83/48 L 95 10/18/16 12:00 10/18/16 15:50 10/18/16 15:50 10/18/16 15:24 10/18/16 15:50 Intake and Output: 10/18/16 10/18/16 06:59 18:59 Intake Total 2500 Output Total 1850 Balance 650 - Medications Medications: Current Medications Acetaminophen (Tylenol 325mg Tab) 650 mg PO Q6 PRN PRN Reason: Fever >100.4 F Last Admin: 10/18/16 10:39 Dose: 650 mg Ascorbic Acid (Vitamin C 500 Mg Tab) 500 mg PO DAILY [facility] Last Admin: 10/18/16 10:35 Dose: 500 mg Famotidine (Pepcid) 20 mg IVP Q12 [facility] Last Admin: 10/18/16 10:35 Dose: 20 mg Heparin Sodium (Porcine) (Heparin) 5,000 units SC Q12 [facility] Last Admin: 10/18/16 10:35 Dose: 5,000 units Metronidazole (Flagyl) 500 mg in 100 mls @ 100 mls/hr IVPB Q8H [facility] Last Admin: 10/18/16 10:36 Dose: 100 mls/hr Ceftriaxone Sodium 1 gm/ (Sodium Chloride) 100 mls @ 100 mls/hr IVPB Q12H [facility] Last Admin: 10/18/16 06:23 Dose: 100 mls/hr Sodium Chloride (Sodium Chloride 0.9%) 1,000 mls @ 125 mls/hr IV .Q8H [facility] Last Admin: 10/18/16 10:42 Dose: Not Given Ondansetron HCl (Zofran Inj) 4 mg IVP Q6H PRN PRN Reason: Nausea/Vomiting Saccharomyces Boulardii (Florastor) 250 mg PO TID [facility] Last Admin: 10/18/16 13:25 Dose: 250 mg Thiamine HCl (Vitamin B1 Tab) 100 mg PO DAILY [facility] Last Admin: 10/18/16 10:35 Dose: 100 mg - Labs Labs: 10/18/16 06:22 10/18/16 06:22 Attending/Attestation - Attestation I have personally seen and examined this patient.: Yes I have fully participated in the care of the patient.: Yes I have reviewed all pertinent clinical information, including history, physical exam and plan: Yes Notes (Text): 10/18/16 17:04 Medical attending: Patient was seen and examined by me, agree with the above note by the resident. Patient looks and feels very very good. She denied fever, walked around in her room ok, bathroom ok - no more diarrhea. Her CSF microbiology shows 2 days no growth. Also only 8 WBC and normal glucoses in the CSF. Her BP is low however she has never required pressor medications - she is a smaller woman in [facility]. So will stop with isolation, and patient is being moved to a med surg/GM[facility] floor. thank you Titus Hernandez
[2016-10-18] MEDS: Saccharomyces Boulardi 250 mg Cap PO SCH ×3 (10:35→18:09)
[2016-10-19] MEDS: metroNIDAZOLE IV 500 mg/100 ml 500 MG/100 ML BAG IVPB SCH ×2 (01:11→10:17)
[2016-10-19] MEDS: Sodium Chloride 0.9% 1,000 ML IV SCH ×2 (01:12→10:02)
[2016-10-19 06:28] LABS: BASO % 0.3 % (0.0-2.0); EOS # 0.1 K/uL (0.0-0.7); EOS % 1.1 % (0.0-4.0); HEMATOCRIT 27.3 % (34.0-47.0); LYMPH # 1.1 K/uL (1.0-4.3); LYMPH % 21.4 % (20.0-40.0); MEAN CELL VOLUME 89.2 fL (81.0-99.0); MEAN CORPUSCULAR HEMOGLOBIN 29.5 pg (27.0-31.0); MEAN CORPUSCULAR HGB CONC 33.1 g/dL (33.0-37.0); MEAN PLATELET VOLUME 9.3 fL (7.2-11.7); MONO # 0.3 K/uL (0.0-0.8); MONO % 5.6 % (0.0-10.0); RED CELL DISTRIBUTION WIDTH 13.9 % (11.5-14.5); WHITE BLOOD COUNT 5.3 K/uL (4.8-10.8)
[2016-10-19 07:31] LABS: CHLORIDE 107 mmol/L (98-107)
[2016-10-19 07:33] LABS: POTASSIUM 3.4 mmol/L (3.6-5.2); SODIUM 140 mmol/L (132-148)
[2016-10-19 07:35] LABS: ALKALINE PHOSPHATASE 68 U/L (38-126); ALT/SGPT 27 U/L (9-52); AST/SGOT 24 U/L (14-36); BILIRUBIN,TOTAL 0.4 mg/dL (0.2-1.3); BLOOD UREA NITROGEN 6 mg/dL (7-17); CARBON DIOXIDE 26 mmol/L (22-30); GFR AFRICAN-AMERICAN > 60; GLUCOSE,RANDOM 100 mg/dL (65-105); TOTAL PROTEIN 5.9 g/dL (6.3-8.3)
[2016-10-19 07:36] LABS: CALCIUM 7.8 mg/dl (8.6-10.4); MAGNESIUM 1.7 mg/dL (1.6-2.3); PHOSPHOROUS 3.5 mg/dL (2.5-4.5)
[2016-10-19 08:20] VITALS: RESP 20
[2016-10-19] MEDS: Saccharomyces Boulardi 250 mg Cap PO SCH ×3 (10:00→21:24)
[2016-10-19] MEDS ORDERED: Potassium Chloride 20 mEq ER Tab PO ONE (10:23)
--- NOTE | 2016-10-19 21:23 | CP.PCM.PN ---
Subjective - Date & Time of Evaluation Date of Evaluation: 10/19/16 Time of Evaluation: 08:00 - Subjective Subjective: PGY-2 Medicine Note- Dr. Hernandez's Service: Patient seen and examined this AM, no overnight events. Patient says she continues to feel better. Mild headache noted, resolved with Tylenol PRN. Denies fevers, chills, chest pain, SOB, abdominal pain, n/v, d/c, or any additional complaints. Objective - Vital Signs/Intake and Output Vital Signs (last 24 hours): Temp Pulse Resp BP Pulse Ox 98.5 F 56 L 20 98/57 L 98 10/19/16 16:00 10/19/16 16:00 10/19/16 16:00 10/19/16 16:00 10/19/16 16:00 Intake and Output: 10/19/16 10/20/16 18:59 06:59 Intake Total 225 Balance 225 - Medications Medications: Current Medications Acetaminophen (Tylenol 325mg Tab) 650 mg PO Q6 PRN PRN Reason: Fever >100.4 F Last Admin: 10/19/16 09:59 Dose: 650 mg Ascorbic Acid (Vitamin C 500 Mg Tab) 500 mg PO DAILY [facility] Last Admin: 10/19/16 09:59 Dose: 500 mg Famotidine (Pepcid) 20 mg IVP Q12 [facility] Last Admin: 10/19/16 10:00 Dose: 20 mg Heparin Sodium (Porcine) (Heparin) 5,000 units SC Q12 [facility] Last Admin: 10/19/16 10:00 Dose: 5,000 units Metronidazole (Flagyl) 500 mg in 100 mls @ 100 mls/hr IVPB Q8H [facility] Last Admin: 10/19/16 10:17 Dose: 100 mls/hr Ceftriaxone Sodium 1 gm/ (Sodium Chloride) 100 mls @ 100 mls/hr IVPB Q12H [facility] Last Admin: 10/19/16 06:25 Dose: 100 mls/hr Ondansetron HCl (Zofran Inj) 4 mg IVP Q6H PRN PRN Reason: Nausea/Vomiting Saccharomyces Boulardii (Florastor) 250 mg PO TID [facility] Last Admin: 10/19/16 10:00 Dose: 250 mg Thiamine HCl (Vitamin B1 Tab) 100 mg PO DAILY [facility] Last Admin: 10/19/16 09:59 Dose: 100 mg - Labs Labs: 10/19/16 06:18 10/19/16 06:18 - Additional Findings Additional findings: - Constitutional Appears: Well, Non-toxic, No Acute Distress - Head Exam Head Exam: ATRAUMATIC, NORMAL INSPECTION, NORMOCEPHALIC - Eye Exam Eye Exam: EOMI, Normal appearance, PERRL - ENT Exam ENT Exam: Mucous Membranes Moist, Normal Exam - Neck Exam Neck Exam: Full ROM, Normal Inspection. absent: Lymphadenopathy - Respiratory Exam Respiratory Exam: Clear to Ausculation Bilateral, NORMAL BREATHING PATTERN. absent: Rales, Rhonchi, Wheezes, Respiratory Distress, Stridor - Cardiovascular Exam Cardiovascular Exam: REGULAR RHYTHM, RRR, +S1, +S2. absent: Gallop, Rubs, Murmur - GI/Abdominal Exam GI & Abdominal Exam: Soft, Normal Bowel Sounds. absent: Firm, Guarding, Tenderness - Extremities Exam Extremities Exam: Full ROM, Normal Inspection. absent: Pedal Edema, Tenderness - Back Exam Back Exam: NORMAL INSPECTION. absent: rash noted - Neurological Exam Neurological Exam: Alert, Awake, Oriented x3 - Psychiatric Exam Psychiatric exam: Normal Affect, Normal Mood - Skin Skin Exam: Intact, Normal Color, Warm Assessment and Plan - Assessment and Plan (Free Text) Assessment: (1) Sepsis Assessment & Plan: 10/19: Patient doing well. WBC WNL. 10/18: will stop with isolation, and patient is being moved to a med surg/F floor. 10/16: central line placed -Code sepsis called in ER LP studies: Clear, WBC:2, RBC:8, Glucose:78 stool studies: occult blood- negative, leukocytes- positive, no salmonella, shigella, or campylobacter isolated blood culture: no growth after 24 hours Urine: no growth nasal culture: MRSA not detected Cxray: right central venous catheter tip extending to the distal right SVC. No evidence of postprocedure pneumothorax. Mild venous congestion. Right hilar prominence. Linear atelectasis in the right midlung zone. Abdominal U/S: Mildly dilated common duct status post cholecystectomy, study is otherwise unremarkable. -Rocephin 1gm ivpb q12 -Flagyl 500mg ivpb q8 -Pepcid 20mg po bid -Florastor 250mgf po tid -Thiamine 100mg po daily -Vitamin C 500mg po daily Status: Acute (2) Hypotension Assessment & Plan: 10/19: BP WNL, stable. bp:90/51 -NS @ 125cc/hr Status: Acute (3) Prophylactic measure Assessment & Plan: DVT ppx: SCDs; Heparin 5000u sc q12 Pepcid 20 mg PO BID Disposition: DC planning
[2016-10-20] MEDS: metroNIDAZOLE IV 500 mg/100 ml 500 MG/100 ML BAG IVPB SCH ×2 (01:00→11:15)
[2016-10-20] MEDS: Sodium Chloride 0.9% 1,000 ML IV SCH (01:00)
[2016-10-20] MEDS: Saccharomyces Boulardi 250 mg Cap PO SCH ×2 (11:16→13:30)
[2016-10-20 12:01] LABS: BASO % 0.4 % (0.0-2.0); EOS # 0.1 K/uL (0.0-0.7); HEMATOCRIT 29.6 % (34.0-47.0); LYMPH # 1.5 K/uL (1.0-4.3); LYMPH % 29.3 % (20.0-40.0); MEAN CORPUSCULAR HEMOGLOBIN 29.6 pg (27.0-31.0); MEAN CORPUSCULAR HGB CONC 33.2 g/dL (33.0-37.0); MEAN PLATELET VOLUME 9.2 fL (7.2-11.7); MONO # 0.5 K/uL (0.0-0.8); MONO % 9.4 % (0.0-10.0); RED CELL DISTRIBUTION WIDTH 13.9 % (11.5-14.5)
[2016-10-20 12:10] LABS: CHLORIDE 104 mmol/L (98-107); POTASSIUM 3.7 mmol/L (3.6-5.2); SODIUM 141 mmol/L (132-148)
[2016-10-20 12:12] LABS: AST/SGOT 52 U/L (14-36); BILIRUBIN,TOTAL 0.4 mg/dL (0.2-1.3); CARBON DIOXIDE 28 mmol/L (22-30); GFR AFRICAN-AMERICAN > 60; TOTAL PROTEIN 6.7 g/dL (6.3-8.3)
[2016-10-20 12:13] LABS: ALKALINE PHOSPHATASE 61 U/L (38-126); ALT/SGPT 34 U/L (9-52); BLOOD UREA NITROGEN 5 mg/dL (7-17); CALCIUM 8.5 mg/dl (8.6-10.4); GLUCOSE,RANDOM 109 mg/dL (65-105)
[2016-10-20 15:53] VITALS: BP 103/63; PULSE 54; TEMP 98.5; O2SAT 98
--- NOTE | 2016-10-20 17:22 | CP.PCM.DIS ---
Provider - Provider Date of Admission: 10/16/16 14:56 Attending physician: Titus Hernandez DO Primary care physician: Clinic patient Time Spent in preparation of Discharge (in minutes): 40 Hospital Course - Lab Results Lab Results: Micro Results 10/19/16 04:54 Naris MRSA Culture - Final MRSA NOT DETECTED 10/16/16 Unknown Stool Stool Culture - Final NO SALMONELLA, SHIGELLA OR CAMPYLOBACTER ISOLATED. 10/16/16 Unknown Nose MRSA Culture (Admit) - Final MRSA NOT DETECTED 10/16/16 Unknown Urine Urine Culture - Final No Growth (<1,000 CFU/ML) Most Recent Lab Values WBC 5.0 K/uL (4.8-10.8) 10/20/16 11:58 RBC 3.32 Mil/uL (3.80-5.20) L 10/20/16 11:58 Hgb 9.8 g/dL (11.0-16.0) L 10/20/16 11:58 Hct 29.6 % (34.0-47.0) L 10/20/16 11:58 MCV 89.0 fL (81.0-99.0) 10/20/16 11:58 MCH 29.6 pg (27.0-31.0) 10/20/16 11:58 MCHC 33.2 g/dL (33.0-37.0) 10/20/16 11:58 RDW 13.9 % (11.5-14.5) 10/20/16 11:58 Plt Count 207 K/uL (130-400) 10/20/16 11:58 MPV 9.2 fL (7.2-11.7) 10/20/16 11:58 Neut % (Auto) 59.9 % (50.0-75.0) 10/20/16 11:58 Lymph % (Auto) 29.3 % (20.0-40.0) 10/20/16 11:58 [place] % (Auto) 9.4 % (0.0-10.0) 10/20/16 11:58 Eos % (Auto) 1.0 % (0.0-4.0) 10/20/16 11:58 Baso % (Auto) 0.4 % (0.0-2.0) 10/20/16 11:58 Neut # 3.0 K/uL (1.8-7.0) 10/20/16 11:58 Lymph # 1.5 K/uL (1.0-4.3) 10/20/16 11:58 [place] # 0.5 K/uL (0.0-0.8) 10/20/16 11:58 Eos # 0.1 K/uL (0.0-0.7) 10/20/16 11:58 Baso # 0.0 K/uL (0.0-0.2) 10/20/16 11:58 Neutrophils % (Manual) 65 % (50-75) 10/16/16 12:35 Band Neutrophils % 30 % (0-2) H* 10/16/16 12:35 Lymphocytes % (Manual) 4 % (20-40) L 10/16/16 12:35 Monocytes % (Manual) 1 % (0-10) 10/16/16 12:35 Platelet Estimate Normal (NORMAL) 10/16/16 12:35 Hypochromasia (manual) Slight 10/16/16 12:35 Poikilocytosis (manual Slight 10/16/16 12:35 Anisocytosis (manual) Slight 10/16/16 12:35 pO2 23 mm/Hg (30-55) L 10/16/16 17:00 VBG pH 7.31 (7.32-7.43) L 10/16/16 17:00 VBG pCO2 34 mmHg (40-60) L 10/16/16 17:00 VBG HCO3 16.8 mmol/L 10/16/16 17:00 VBG Total CO2 18.1 mmol/L (22-28) L 10/16/16 17:00 VBG O2 Sat (Calc) 47.6 % (40-65) 10/16/16 17:00 VBG Base Excess -8.2 mmol/L (0.0-2.0) L 10/16/16 17:00 VBG Potassium 2.2 mmol/L (3.6-5.2) L* 10/16/16 17:00 Sodium 142.0 mmol/l (132-148) 10/16/16 17:00 Chloride 116.0 mmol/L (98-107) H 10/16/16 17:00 Glucose 88 mg/dl (65-105) 10/16/16 17:00 Lactate 0.8 mmol/L (0.7-2.1) 10/16/16 17:00 Crit Value Called To Dr lagunas 10/16/16 17:00 Crit Value Called By Gamaliel menendez 10/16/16 17:00 Crit Value Read Back Y 10/16/16 17:00 Blood Gas Notified Time 1710 10/16/16 17:00 Sodium 141 mmol/L (132-148) 10/20/16 11:58 Potassium 3.7 mmol/L (3.6-5.2) 10/20/16 11:58 Chloride 104 mmol/L (98-107) 10/20/16 11:58 Carbon Dioxide 28 mmol/L (22-30) 10/20/16 11:58 Anion Gap 12 (10-20) 10/20/16 11:58 BUN 5 mg/dL (7-17) L 10/20/16 11:58 Creatinine 0.5 MG/DL (0.7-1.2) L 10/20/16 11:58 Est GFR ( Amer) > 60 10/20/16 11:58 Est GFR (Non-Af Amer) > 60 10/20/16 11:58 Random Glucose 109 mg/dL (65-105) H 10/20/16 11:58 Calcium 8.5 mg/dl (8.6-10.4) L 10/20/16 11:58 Phosphorus 3.5 mg/dL (2.5-4.5) 10/19/16 06:18 Magnesium 1.7 mg/dL (1.6-2.3) 10/19/16 06:18 Total Bilirubin 0.4 mg/dL (0.2-1.3) 10/20/16 11:58 AST 52 U/L (14-36) H D 10/20/16 11:58 ALT 34 U/L (9-52) 10/20/16 11:58 Alkaline Phosphatase 61 U/L (38-126) 10/20/16 11:58 Total Protein 6.7 g/dL (6.3-8.3) 10/20/16 11:58 Albumin 3.4 g/dL (3.5-5.0) L 10/20/16 11:58 Globulin 3.3 gm/dL (2.2-3.9) 10/20/16 11:58 Albumin/Globulin Ratio 1.0 (1.0-2.1) 10/20/16 11:58 Venous Blood Potassium 2.2 mmol/L (3.6-5.2) L* 10/16/16 17:00 Urine Color Yellow (YELLOW) 10/16/16 12:35 Urine Clarity Hazy (Clear) 10/16/16 12:35 Urine pH 5.0 (5.0-8.0) 10/16/16 12:35 Ur Specific [place] 1.023 (1.003-1.030) 10/16/16 12:35 Urine Protein Negative mg/dL (NEGATIVE) 10/16/16 12:35 Urine Glucose (UA) Normal mg/dL (Normal) 10/16/16 12:35 Urine Ketones Negative mg/dL (NEGATIVE) 10/16/16 12:35 Urine Blood 1+ (NEGATIVE) H 10/16/16 12:35 Urine Nitrate Negative (NEGATIVE) 10/16/16 12:35 Urine Bilirubin Negative (NEGATIVE) 10/16/16 12:35 Urine Urobilinogen Normal mg/dL (0.2-1.0) 10/16/16 12:35 Ur Leukocyte Esterase Trace [place]/uL (Negative) 10/16/16 12:35 Urine WBC (Auto) 3 /hpf (0-5) 10/16/16 12:35 Urine RBC (Auto) 7 /hpf (0-3) H 10/16/16 12:35 Ur Squamous Epith Cells 28 /hpf (0-5) H 10/16/16 12:35 Fluid Type Spinal fluid 10/16/16 14:35 CSF Volume TEST NOT PERFORMED 10/16/16 14:35 CSF Appearance Clear/colorless (CLEAR) 10/16/16 14:35 CSF WBC 2.0 /mm3 (0.0-5.0) 10/16/16 14:35 CSF RBC 8.0 /mm3 (0.0-0.0) H 10/16/16 14:35 CSF Total Cell Counted TEST NOT PERFORMED 10/16/16 14:35 CSF Monos/Macrophages TEST NOT PERFORMED 10/16/16 14:35 CSF Comment 10/16/16 14:35 CSF Glucose 78 mg/dL (40-70) H 10/16/16 14:35 Stool Occult Blood Negative (NEGATIVE) 10/16/16 18:55 Stool Leukocytes, Qual Positive (NEGATIVE) H 10/16/16 Unknown C. difficile Ag & Toxin Negative (NEGATIVE) 10/18/16 Unknown Hepatitis A IgM Ab Negative (NEGATIVE) 10/17/16 06:31 Hep Bs Antigen Negative (NEGATIVE) 10/17/16 06:31 Hep B Core IgM Ab Negative (NEGATIVE) 10/17/16 06:31 Hepatitis C Antibody Negative (NEGATIVE) 10/17/16 06:31 - Hospital Course Hospital Course: Upon hospital admission: Patient is a 51yo F PMHx hypotension does not take any medications who presented to ER complaining of fever, chills, headache, neck pain, diarrhea, and vomiting for one day. Patient was afebrile in ER but had rectal temp 103 with bandemia and BP of 70/40 with HR 62. Code sepsis was called in ER and LP was performed by Dr. Villalta. Blood and urine cultures ordered and patient was given 1 dose vancomycin and started on Rocephin. Patient was given 3L bolus but BP was still 60s/40s and was accepted to unit. Patient reports headache was 8-9/10 and locaed on the top of her head with no associated blurry vision/ringing of the ears. Patient was also complaining of colicky abdominal pain 8-9/10 and had 6 episodes of diarrhea and home that had no bood but was dark colored. Patient also had 3 episodes of nonbloody nonbilious emesis this AM. Her last meal was yesterday and she denied any sick contacts. Patient did not take a temp at home but was complaining of chills. She denied any chest pain, palpitations, SOB, cough, b/l leg pain/swelling. She denied any recent travel and moved from [facility] years ago. 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 Central line place, stool leukocytes resulted positive. All other cultures were negative. Stool Occult blood also negative. LP studies: Clear, WBC:2, RBC:8, Glucose:78. WBC WNL, however 30 bands present. Cxray: right central venous catheter tip extending to the distal right SVC. No evidence of postprocedure pneumothorax. Mild venous congestion. Right hilar prominence. Linear atelectasis in the right midlung zone. Abdominal U/S: Mildly dilated common duct status post cholecystectomy, study is otherwise unremarkable. Patient was treated with Rocephin 1gm ivpb q12 ; Flagyl 500mg ivpb q8; Pepcid 20mg po bid; Florastor 250mgf po tid; Thiamine 100mg po daily; Vitamin C 500mg po daily. [2] Hypotension with initial BP 90/ 51. Patient was tx with NS at 125cc/hr. Her BP repained fluctuant during admission, however stabilized in the low 100's/60's. The patient did well during this admission, responded well to treatment, and was deemed stable for discharge. Upon hospital discharge, the patient was provided with the following instructions: Patient is stable for discharge per Dr. Hernandez. Patient should resume all medications as outlined in this document. Additionally, patient should take the new medications listed below (scripts provided). Please make an appointment and follow up with your Primary Doctor within one week of discharge. If patient does not have a Primary Doctor, please follow up with [facility] to establish medical care, at [phone]. Patient should return to ED immediately if symptoms return or worsen. Instructions discussed with patient who understood and agreed. Newly prescribed medications: Augmentin 875mg-125mg 1 Tab Orally BID #6 This is a summary of the patient's hospital admission, see chart for comprehensive detail. - Date & Time of H&P Date of H&P: 10/16/16 Time of H&P: 14:46 Discharge Exam - Additional Findings Additional findings: - Constitutional Appears: Well, Non-toxic, No Acute Distress - Head Exam Head Exam: ATRAUMATIC, NORMAL INSPECTION, NORMOCEPHALIC - Eye Exam Eye Exam: EOMI, Normal appearance, PERRL - ENT Exam ENT Exam: Mucous Membranes Moist, Normal Exam - Neck Exam Neck Exam: Full ROM, Normal Inspection. absent: Lymphadenopathy - Respiratory Exam Respiratory Exam: Clear to Ausculation Bilateral, NORMAL BREATHING PATTERN. absent: Rales, Rhonchi, Wheezes, Respiratory Distress, Stridor - Cardiovascular Exam Cardiovascular Exam: REGULAR RHYTHM, RRR, +S1, +S2. absent: Gallop, Rubs, Murmur - GI/Abdominal Exam GI & Abdominal Exam: Soft, Normal Bowel Sounds. absent: Firm, Guarding, Tenderness - Extremities Exam Extremities Exam: Full ROM, Normal Inspection. absent: Pedal Edema, Tenderness - Back Exam Back Exam: NORMAL INSPECTION. absent: rash noted - Neurological Exam Neurological Exam: Alert, Awake, Oriented x3 - Psychiatric Exam Psychiatric exam: Normal Affect, Normal Mood - Skin Skin Exam: Intact, Normal Color, Warm Discharge Plan - Discharge Medications Prescriptions: Amoxicillin/Clavulanate [Augmentin 875 MG-125 MG] 1 tab PO BID #6 tab - Follow Up Plan Condition: GUARDED Disposition: HOME/ ROUTINE Instructions: Amoxicillin (By mouth), Sepsis (DC), Sepsis (GEN), Acute Headache (DC), Hypotension (DC) Additional Instructions: Patient is stable for discharge per Dr. Hernandez. Patient should resume all medications as outlined in this document. Additionally, patient should take the new medications listed below (scripts provided). Please make an appointment and follow up with your Primary Doctor within one week of discharge. If patient does not have a Primary Doctor, please follow up with [facility] to establish medical care, at [phone]. Patient should return to ED immediately if symptoms return or worsen. Instructions discussed with patient who understood and agreed. Newly prescribed medications: Augmentin 875mg-125mg 1 Tab Orally BID #6
== END 2016-10-20 17:00 | disposition home or self-care (01) | DRG 901 ==
LOC: C.ER 10:56 → C.9I 14:56 → C.3T 10-19 02:23
PROVIDERS: ADMIT Hospitalist; ATTEND Hospitalist
PROC: 009U3ZX Drainage of Spinal Canal, Percutaneous Approach, Diagnostic (ICD-10-PCS; principal; 2016-10-16)
PROC: 02HV33Z Insertion of Infusion Device into Superior Vena Cava, Percutaneous Approach (ICD-10-PCS; 2016-10-16)
DX: A41.9 Sepsis, unspecified organism (principal); G89.29 Other chronic pain; R19.7 Diarrhea, unspecified; R65.20 Severe sepsis without septic shock; M54.2 Cervicalgia; Z90.49 Acquired absence of other specified parts of digestive tract

== ENCOUNTER 2017-07-13 22:52 | Emergency (ER) | payer OTHER ==
[2017-07-13 22:52] VITALS: BMI 33.4
[2017-07-13] MEDS ORDERED: Sodium Chloride 0.9% 1,000 ML IV ONE (23:35)
--- NOTE | 2017-07-13 23:41 | C.PDOC ---
History Of Present Illness 51 y/o female presents to the ED complaining of dizziness, headache, and nausea , onset 2 hours ago. Patient has had vertigo in past, and reports current symptoms are similar to prior vertigo episodes. Did not take any medications for symptom relief prior to arrival. Denies any focal weakness, visual changes, fever, chills, neck pain or stiffness. Time Seen by Provider: 07/13/17 23:28 Chief Complaint (Nursing): Dizziness/Lightheaded History Per: Patient History/Exam Limitations: no limitations Onset/Duration Of Symptoms: Hrs (x2) Current Symptoms Are (Timing): Still Present Past Medical History Reviewed: Historical Data, Nursing Documentation, Vital Signs Vital Signs: Last Vital Signs Temp 97.4 F L 07/13/17 23:13 Pulse 55 L 07/13/17 23:13 Resp 20 07/13/17 23:13 BP 104/67 07/13/17 23:13 Pulse Ox 100 07/14/17 00:59 - Medical History PMH: Migraine Denies: Diabetes, Hepatitis, HIV, HTN, Seizures, Sexually Transmitted Disease Surgical History: Cholecystectomy - [facility] Procedures DRAINAGE OF SPINAL CANAL, PERCUTANEOUS APPROACH, DIAGNOSTIC (10/16/16) INSERTION OF INFUSION DEV INTO SUP VENA CAVA, PERC APPROACH (10/16/16) Family History: States: Unknown Family Hx - Social History Hx Tobacco Use: No Hx Alcohol Use: No Hx Substance Use: No - Immunization History Hx Tetanus Toxoid Vaccination: Yes Hx Influenza Vaccination: No Hx Pneumococcal Vaccination: No Review Of Systems Except As Marked, All Systems Reviewed And Found Negative. Constitutional: Negative for: Fever, Chills Eyes: Negative for: Vision Change Gastrointestinal: Positive for: Nausea. Negative for: Vomiting Musculoskeletal: Negative for: Neck Pain Neurological: Positive for: Headache, Dizziness. Negative for: Weakness, Numbness Physical Exam - Physical Exam Appears: Non-toxic, No Acute Distress Skin: Normal Color, Warm, Dry Head: Atraumatic, Normacephalic Eye(s): bilateral: Normal Inspection, PERRL, EOMI Neck: Normal, Normal ROM, No Midline Cervical Tenderness, Supple, No Other ( rigidity) Chest: Symmetrical Cardiovascular: Rhythm Regular, No Murmur Respiratory: Normal Breath Sounds, No Accessory Muscle Use Gastrointestinal/Abdominal: Bowel Sounds, Soft, No Tenderness, No Distention Extremity: Normal ROM, No Pedal Edema, Capillary Refill (< 2 sec) Extremity: Bilateral: Atraumatic, Normal Color And Temperature Neurological/Psych: Oriented x3, Normal Speech, Normal Cranial Nerves, Normal Motor, Normal Sensation, No Other (focal deficits) Gait: Steady ED Course And Treatment - Laboratory Results Result Diagrams: 07/14/17 00:15 07/14/17 00:15 O2 Sat by Pulse Oximetry: 100 (RA) Pulse Ox Interpretation: Normal - CT Scan/US CT head Other Rad Studies (CT/US): Read By Radiologist, Radiology Report Reviewed CT/US Interpretation: FINDINGS: Brain: No intracranial hemorrhage. No mass. Few calcifications of basal ganglia. No definite. edema. Ventricles: No hydrocephalus. Bones/joints: No acute fracture. Soft tissues: Unremarkable. Sinuses: No acute sinusitis. Mastoid air cells: No mastoid effusion. Orbits: Unremarkable as visualized. IMPRESSION: 1. No definite acute intracranial abnormality. 2. Incidental/non-acute findings are described above. Thank you for allowing us to participate in the care of your patient. Dictated and Authenticated by: Claude Walton MD. 07/14/2017 12:25 AM Eastern Time ([place] & [place]) Medical Decision Making Medical Decision Making: Time: 23:31 Initial Plan: --Accucheck --Basic blood work --CT Head --IVF hydration --Trial of meclizine with IV Toradol and Zofran --Reevaluation Disposition Counseled Patient/Family Regarding: Diagnosis - Disposition Referrals: [facility] [Outside] Disposition: HOME/ ROUTINE Disposition Time: 01:38 Condition: STABLE Prescriptions: Ibuprofen [Motrin] 1 tab PO TID PRN #30 tab PRN Reason: Pain Meclizine [Antivert] 12.5 mg PO Q6 #20 tab Instructions: Headache, Adult (DC), Vertigo (a Type of Dizziness) (DC) Forms: [employer] ([place]) - POA Present On Arrival: None - Clinical Impression Clinical Impression: Vertigo, Headache - Scribe Statement The provider has reviewed the documentation as recorded by the Theeibe Brandie Fleming Provider Attestation: All medical record entries made by the Scribe were at my direction and personally dictated by me. I have reviewed the chart and agree that the record accurately reflects my personal performance of the history, physical exam, medical decision making, and the department course for this patient. I have also personally directed, reviewed, and agree with the discharge instructions and disposition.
[2017-07-14 00:23] LABS: BASO % 0.3 % (0.0-2.0); EOS % 0.4 % (0.0-4.0); HEMOGLOBIN 10.7 g/dL (11.0-16.0); LYMPH # 1.3 K/uL (1.0-4.3); LYMPH % 15.3 % (20.0-40.0); MEAN CELL VOLUME 90.8 fL (81.0-99.0); MEAN CORPUSCULAR HEMOGLOBIN 30.8 pg (27.0-31.0); MEAN CORPUSCULAR HGB CONC 33.9 g/dL (33.0-37.0); MEAN PLATELET VOLUME 8.5 fL (7.2-11.7); MONO # 0.5 K/uL (0.0-0.8); MONO % 5.7 % (0.0-10.0); NEUT # 6.6 K/uL (1.8-7.0); NEUT % 78.3 % (50.0-75.0); RBC 3.48 Mil/uL (3.80-5.20); RED CELL DISTRIBUTION WIDTH 13.3 % (11.5-14.5); WHITE BLOOD COUNT 8.4 K/uL (4.8-10.8)
[2017-07-14] MEDS ORDERED: Sodium Chloride 0.9% 1,000 ML ONE (00:24)
--- NOTE | 2017-07-14 00:25 | CT ---
EXAM: CT Head Without Intravenous Contrast CLINICAL HISTORY: 51 years old, female; Pain; Headache TECHNIQUE: Axial computed tomography images of the head/brain without intravenous contrast. All CT scans at this facility use one or more dose reduction techniques, viz.: automated exposure control; ma/kV adjustment per patient size (including targeted exams where dose is matched to indication; i.e. head); or iterative reconstruction technique. Coronal and sagittal reformatted images were created and reviewed. COMPARISON: No relevant prior studies available. FINDINGS: Brain: No intracranial hemorrhage. No mass. Few calcifications of basal ganglia. No definite edema. Ventricles: No hydrocephalus. Bones/joints: No acute fracture. Soft tissues: Unremarkable. Sinuses: No acute sinusitis. Mastoid air cells: No mastoid effusion. Orbits: Unremarkable as visualized. IMPRESSION: 1. No definite acute intracranial abnormality. 2. Incidental/non-acute findings are described above.
[2017-07-14 00:32] LABS: ALB/GLOB RATIO 1.2 (1.0-2.1); ALT/SGPT 20 U/L (9-52); AST/SGOT 34 U/L (14-36); BLOOD UREA NITROGEN 23 mg/dL (7-17); CALCIUM 8.5 mg/dl (8.6-10.4); GFR AFRICAN-AMERICAN > 60; GFR NON-AFRICAN AMERICAN > 60
[2017-07-14 02:00] VITALS: BP 116/74; PULSE 60; RESP 18; TEMP 97.8; O2SAT 99
== END 2017-07-14 02:00 | disposition home or self-care (01) ==
LOC: C.ER 22:52
DX: R51 Headache (principal); R42 Dizziness and giddiness
CPT/HCPCS: 70450; 80053; 82948; 85025; 96374; 99285; J1885; J7040

== ENCOUNTER 2018-07-04 11:38 | Emergency (ER) | payer OTHER ==
[2018-07-04 11:39] VITALS: BMI 33.4
[2018-07-04 11:48] VITALS: BP 100/64; PULSE 64; RESP 16; TEMP 98; O2SAT 98
--- NOTE | 2018-07-04 13:19 | RAD ---
Chest x-ray single frontal view HISTORY: Cough. Comparison: 10/16/2016 Findings: Diffuse increased interstitial lung markings. Small nodular densities at the lateral aspect of the right midlung zone and right lung base may represent prominent vessels on end versus additional etiology. Biapical pleural thickening with upper lobe granulomatous changes. Bibasilar breast and nipple shadows. Heart size within normal limits. Impression: Diffuse increased interstitial lung markings. Small nodular densities at the lateral aspect of the right midlung zone and right lung base may represent prominent vessels on end versus additional etiology. Biapical pleural thickening with upper lobe granulomatous changes. If cough persists, consider correlation with chest CT.
[2018-07-04 13:59] LABS: INFLUENZA A B NEGATIVE FOR FLU A/B (NEGATIVE)
--- NOTE | 2018-07-04 14:11 | C.PDOC ---
History Of Present Illness 52 y/o female, with history of liver surgery for calcification removal, presents today with cough, cold, and congestion for the past 3 weeks. Notes that her symptoms went away a week ago and came back 5 days ago. She denies any hemoptysis or trauma to the neck, difficulty swallowing or breathing, or any sick contacts. Notes she hasnt had the flu shot. She also notes body aches. Patient also notes of a subjective fever, night sweats, and chills but no recent travel abroad. No neck stiffness, abdominal pain, chest pain, or back pain. Time Seen by Provider: 07/04/18 11:45 Chief Complaint (Nursing): Cough, Cold, Congestion History Per: Patient History/Exam Limitations: no limitations Onset/Duration Of Symptoms: Days Current Symptoms Are (Timing): Still Present Past Medical History Reviewed: Historical Data, Nursing Documentation, Vital Signs Vital Signs: Last Vital Signs Temp 98 F 07/04/18 11:47 Pulse 64 07/04/18 11:47 Resp 16 07/04/18 11:47 BP 100/64 07/04/18 11:47 Pulse Ox 98 07/04/18 11:47 - Medical History PMH: Migraine Denies: Diabetes, Hepatitis, HIV, HTN, Seizures, Sexually Transmitted Disease Surgical History: Cholecystectomy - [facility] Procedures DRAINAGE OF SPINAL CANAL, PERCUTANEOUS APPROACH, DIAGNOSTIC (10/16/16) INSERTION OF INFUSION DEV INTO SUP VENA CAVA, PERC APPROACH (10/16/16) Family History: States: No Known Family Hx - Social History Hx Tobacco Use: No Hx Alcohol Use: No Hx Substance Use: No - Immunization History Hx Tetanus Toxoid Vaccination: Yes Hx Influenza Vaccination: No Hx Pneumococcal Vaccination: No Review Of Systems Constitutional: Positive for: Fever (subjective), Chills, Sweats. Negative for: Weakness, Malaise, Weight loss Eyes: Negative for: Pain, Vision Change, Conjunctivae Inflammation, Eyelid Inflammation, Redness, Other ENT: Positive for: Nose Congestion. Negative for: Ear Pain, Ear Discharge, Nose Pain, Nose Discharge, Mouth Pain, Mouth Swelling, Throat Swelling Cardiovascular: Negative for: Chest Pain, Palpitations, Orthopnea, Edema Respiratory: Positive for: Cough. Negative for: Shortness of Breath, Hemoptysis, SOB with Excertion, Pleuritic Pain, Sputum, Wheezing Gastrointestinal: Negative for: Nausea, Vomiting, Abdominal Pain, Diarrhea, Constipation, Melena, Hematochezia, Hematemesis Genitourinary: Negative for: Dysuria, Frequency, Incontinence, Hematuria, Vaginal Discharge, Vaginal Bleeding Musculoskeletal: Negative for: Neck Pain, Shoulder Pain, Arm Pain, Back Pain, Hand Pain, Leg Pain Skin: Negative for: Rash Neurological: Negative for: Weakness, Numbness, Incoordination, Change in Speech, Confusion, Seizures, Altered Mental Status, Headache Psych: Negative for: Anxiety, Depression Physical Exam - Physical Exam Appears: Well, Non-toxic, No Acute Distress Skin: Warm, Dry Head: Normacephalic Eye(s): bilateral: Normal Inspection, PERRL, EOMI Nose: Normal Oral Mucosa: Moist Tongue: Normal Appearing Lips: Normal Appearing Teeth: Normal Dentition Gingiva: Normal Appearing Throat: Normal, No Erythema, No Exudate, No Drooling, No Mass Neck: Normal, Normal ROM, Decreased ROM, Supple, Other (no meningeal signs) Lymphatic: Normal Exam, No Adenopathy Chest: Symmetrical Cardiovascular: Rhythm Regular, No Murmur Respiratory: Normal Breath Sounds, No Rales, No Rhonchi, No Wheezing Gastrointestinal/Abdominal: Normal Exam, Soft, No Tenderness, No Organomegaly, No Mass, No Distention, No Guarding Back: Normal Inspection, No CVA Tenderness, No Vertebral Tenderness Extremity: Bilateral: Atraumatic, Normal Color And Temperature, Normal ROM Neurological/Psych: Oriented x3, Normal Speech, Normal Cognition, Normal Motor, Other (no focal deficits) Gait: Steady ED Course And Treatment O2 Sat by Pulse Oximetry: 98 (RA) Pulse Ox Interpretation: Normal - Other Rad CXR X-Ray: Read By Radiologist Interpretation: Findings: Diffuse increased interstitial lung markings. Small nodular densities at the lateral aspect of the right midlung zone and right lung base may represent prominent vessels on end versus additional etiology. Biapical pleural thickening with upper lobe granulomatous changes. Bibasilar breast and nipple shadows. Heart size within normal limits. Impression: Diffuse increased interstitial lung markings. Small nodular densities at the lateral aspect of the right midlung zone and right lung base may represent prominent vessels on end versus additional etiology. Biapical pleural thickening with upper lobe granulomatous changes. If cough persists, consider correlation with chest CT. Medical Decision Making Medical Decision Makin yr old female p/w cough, congestion, sore throat. No meningeal signs. No abnl oropharyngeal exam. No rash noted. No signs of trauma or fall. Lungs CTA b/l, abd non-ttp. No dark or bloody stool or GI or complaints. Impression: Viral URI vs Bronchitis vs Flu vs Strep throat Plan: --Chest XR --Flu swab --Rapid strep --Throat culture 1531 xray w/ possible bronchitis, Nodule noted on XRay: informed pt and need to follow up regarding nodule Flu negative however given high clinical suspicion will rx. pt in NAD, clear for d/c home with return indications and f/u she is agreeable to plan. Disposition - Disposition Referrals: Radames Mckinley MD [Staff Provider] - [facility] [Outside] [facility] [[facility]] [facility] [Outside] Disposition: HOME/ ROUTINE Disposition Time: 14:36 Condition: GOOD Additional Instructions: GEORGINA AGOSTO, thank you for letting us take care of you today. Your provider was Moises Juárez and you were treated for COLD/FEVER. The emergency medical care you received today was directed at your acute symptoms. If you were prescribed any medication, please fill it and take as directed. It may take several days for your symptoms to resolve. Return to the Emergency Department if your symptoms worsen, do not improve, or if you have any other problems. Please contact your doctor or call one of the physicians/clinics you have been referred to that are listed on the Patient Visit Information form that is included in your discharge packet. Bring any paperwork you were given at discharge with you along with any medications you are taking to your follow up visit. Our treatment cannot replace ongoing medical care by a primary care provider outside of the emergency department. Thank you for allowing the [employer] [facility] team to be part of your care today. If you had an X-Ray or CT scan: A Radiologist will review the ED reading if any change in treatment is needed we will contact you. If you had a blood, urine, or wound culture: It will take several days for the results, if any change in treatment is needed we will contact you. If you had an STI test: It will take 48 hours for the results. Please call after 1 week if you have not heard back. Prescriptions: Azithromycin [Z-Elver] 250 mg PO DAILY #6 tab Oseltamivir Cap [Tamiflu] 75 mg PO BID 5 Days #10 cap Instructions: Influenza (ED), Upper Respiratory Infection (ED) Forms: [facility] [employer] [facility] ([employer]wana) Print Language: ESTONIAN - Clinical Impression Clinical Impression: Influenza-like illness, Bronchitis - Scribe Statement The provider has reviewed the documentation as recorded by the [employer] Head Provider Attestation: All medical record entries made by the [employer] were at my direction and personally dictated by me. I have reviewed the chart and agree that the record accurately reflects my personal performance of the history, physical exam, medical decision making, and the department course for this patient. I have also personally directed, reviewed, and agree with the discharge instructions and disposition.
== END 2018-07-04 14:47 | disposition home or self-care (01) ==
LOC: C.ER 11:38
DX: J11.1 Influenza due to unidentified influenza virus with other respiratory manifestations (principal); J40 Bronchitis, not specified as acute or chronic